=== PATIENT | male | born 1965 | race Caucasian/White ===

== ENCOUNTER 2025-03-20 21:03 | Emergency (ER) | payer SELFPAY ==
[2025-03-20] MEDS: Furosemide 100 MG/10 ML SDV IVPUSH ONE ×2 (21:10→22:34)
[2025-03-20] MEDS: Metoprolol Tartrate 5 MG/5 ML SDV IVPUSH ONE (21:17)
[2025-03-20] MEDS: LORazepam 2 MG/ML SDV IVPUSH ONE ×4 (21:29→23:26)
[2025-03-20] MEDS: Nitroglycerin 0.4 MG Tab.SL SL ONE ×3 (21:30→22:05)
[2025-03-20] MEDS: Magnesium Sulfate 2 GM/50 mL 2 GM in Premix Bag 1 BAG IV ONE (21:38)
[2025-03-20 21:43] LABS: BASOPHILS PERCENT AUTO 0.3 % (0.0-1.0); EOSINOPHILS PERCENT AUTO 0.8 % (1.0-3.0); HEMATOCRIT 48.5 % (40.0-54.0); HEMOGLOBIN 16.4 g/dL (14.0-18.0); LYMPHOCYTES PERCENT AUTO 36.3 % (20.5-50.1); MEAN CORPUSCULAR HEMOGLOBIN 30.1 pg (27.0-34.0); MEAN CORPUSCULAR HGB CONC 33.8 g/dL (33.0-35.0); MEAN CORPUSCULAR VOLUME 89.2 fL (80-100); NEUTROPHILS PERCENT AUTO 54.6 % (42.2-75.2); PLATELET COUNT,PLT 355 10^3/uL (150-450); RED BLOOD CELL COUNT 5.44 10^6/uL (4.6-6.2); WHITE BLOOD CELL COUNT,WBC 19.3 10^3/uL (5.0-10.0)
[2025-03-20 21:53] LABS: PROTHROMBIN TIME 10.9 SEC (9.0-12.0)
[2025-03-20 21:56] LABS: O2 DELIVERY DEVICE NON REBR MASK
[2025-03-20 21:57] LABS: BASE EXCESS VENOUS -2.7 mmol/l ((-2)-(+3)); BICARBONATE,VENOUS 26 mmol/l (19-25); O2 SATURATION VENOUS 93.1 % (60-80); PH,VENOUS 7.25 (7.31-7.41); PO2 VENOUS 77 mmHg (35-42)
[2025-03-20 21:58] LABS: PCO2 VENOUS 61 mmHg (41-51)
[2025-03-20 22:00] LABS: A/G RATIO 0.8; ALANINE AMINOTRANSFERASE,ALT 82 U/L (16-63); ALBUMIN 3.8 g/dL (3.4-5.0); ALKALINE PHOSPHATASE 145 U/L (46-116); ANION GAP 16.9 mEq/L (7-13); ASPARTATE AMNIOTRANSFERASE,AST 70 U/L (15-37); BILIRUBIN TOTAL 0.5 mg/dL (0.2-1.0); BLOOD UREA NITROGEN,BUN 16 mg/dL (7-18); BUN/CREATININE RATIO 13.1 (No establ ref range); CALCIUM 9.2 mg/dL (8.5-10.1); CARBON DIOXIDE,CO2 26 mmol/L (21-32); CHLORIDE,CL 97 mmol/L (98-107); CREATININE 1.22 mg/dL (0.70-1.30); MAGNESIUM 1.9 mg/dL (1.8-2.4); POTASSIUM,K 3.9 mmol/L (3.5-5.1); PROTEIN TOTAL,TP 8.7 g/dL (6.4-8.2); SODIUM,NA 136 mmol/L (136-145)
[2025-03-20 22:03] LABS: ESTIMATED GFR 68 mL/min (>=60); GLUCOSE RANDOM 406 mg/dL (70-99)
[2025-03-20] MEDS: LORazepam 2 MG/ML SDV ONE (22:03)
[2025-03-20 22:14] LABS: B-TYPE NATRIURETIC PEPTIDE,BNP 151 pg/ml (0-100)
[2025-03-20 22:17] LABS: LACTIC ACID 3.6 mmol/L (0.4-2.0)
[2025-03-20] MEDS: Morphine 4 MG/ML Syringe ONE (22:26)
[2025-03-20] MEDS: Morphine 4 MG/ML VIAL IVPUSH ONE (22:27)
[2025-03-20] MEDS: Ketamine 500 mg/10 ML MDV ONE (22:33)
[2025-03-20] MEDS: Heparin Sodium/0.45% NaCl 25,000 UNITS/500 ML BAG IV SCH (22:52)
[2025-03-20] MEDS: Heparin Sodium 5,000 Units/ML Vial IVPUSH ONE (23:00)
[2025-03-20] MEDS: Midazolam 50 MG in Sodium Chloride 0.9% 40 ML IV SCH (23:50)
== END 2025-03-21 01:01 ==
LOC: DL.ED 21:03
DX: J96.01 Acute respiratory failure with hypoxia (principal); I21.4 Non-ST elevation (NSTEMI) myocardial infarction; I50.9 Heart failure, unspecified; Z87.891 Personal history of nicotine dependence
CPT/HCPCS: 36415; 51702; 71045; 80053; 82803; 83605; 83735; 83880; 84484; 85025; 85379; 85610; 93005; 94660; 94762; 96365; 96366; 96368; 96375; 96376; 99285; A9270; J1644; J1938; J2060; J2250; J2270; J3475; J3490